=== PATIENT | male | born 1970 | race Caucasian/White ===

== ENCOUNTER 2017-05-21 19:11 | Emergency (ER) | payer OTHER ==
[~2017-05-21] VITALS: Ht 172.7 cm; Wt 128.5 kg
[~2017-05-21 19:11] MED LIST: Ceftin PO; Percocet 5/325,Endoc PO
[2017-05-21] MEDS ORDERED: SKELAXIN800 MG PO (20:33)
[2017-05-21 20:40] VITALS: BP 135/75
== END 2017-05-21 20:41 | disposition home or self-care (01) ==
LOC: EME 19:11
DX: S20.212A Contusion of left front wall of thorax, initial encounter (principal); S39.012A Strain of muscle, fascia and tendon of lower back, initial encounter; V49.40XA Driver injured in collision with unspecified motor vehicles in traffic accident, initial encounter; Z85.850 Personal history of malignant neoplasm of thyroid
CPT/HCPCS: 71020; 99281; 99283